=== PATIENT | male | born 1995 | race Hispanic/Latino ===

== ENCOUNTER 2017-11-04 09:14 | Emergency (ER) | payer MEDICAID ==
[2017-11-04 10:27] LABS: APPEARANCE,URINE Turbid (CLEAR); BILIRUBIN,URINE Small (NEGATIVE); COLOR,URINE Red (YELLOW); GLUCOSE, URINE (UA) Negative (NEGATIVE); KETONES,URINE Negative (NEGATIVE); LEUKOCYTE ESTERASE ,URINE Large (NEGATIVE); NITRATE,URINE Negative (NEGATIVE); OCCULT BLOOD,URINE Large (NEGATIVE); PH,URINE 7.5 (5.0-8.0); PROTEIN,URINE POS 2+ (NEGATIVE)
[2017-11-04 10:44] LABS: BACTERIA,URINE Few /HPF (None Seen); RBC,URINE TNTC /HPF (0-1); SQUAMOUS EPITHELIAL CELL,UR None Seen /HPF (0-2)
[2017-11-04] MEDS ORDERED: PHENAZOPYRIDINE HCL 200 MG TABLET ONE (10:47)
[2017-11-04] MEDS ORDERED: LIDOCAINE HCL-MPF 1% 2ML VIAL ONE (10:47)
[2017-11-04] MEDS ORDERED: CEFTRIAXONE SODIUM 1 GM ONE (10:47)
== END 2017-11-04 11:25 | disposition home or self-care (01) ==
LOC: EDH 09:14
DX: N30.90 Cystitis, unspecified without hematuria (principal); F84.0 Autistic disorder; Z90.49 Acquired absence of other specified parts of digestive tract
CPT/HCPCS: 81001; 87486; 87797; 96372; 99284; J0696; J3490

== ENCOUNTER 2018-11-24 20:59 | Inpatient (IN) | payer MEDICAID | END 2018-11-29 18:40 | disposition home or self-care (01) | LOC: EDH 20:59 → EDHIP 21:00 → 4CH 11-25 04:22 | DX: A41.9 Sepsis, unspecified organism (principal); N12 Tubulo-interstitial nephritis, not specified as acute or chronic; E87.6 Hypokalemia; F84.0 Autistic disorder ==

== ENCOUNTER → 2020-11-09 | Outpatient (CLI) | payer MEDICAID ==
[~2020-11-09] MED LIST: LEVO500T2 PO; RISP0.5T66 PO; TOPI25TA48 PO
[2020-11-09 09:08] LABS: APPEARANCE,URINE CLEAR (CLEAR); BASOPHILS % (AUTO) 0.6 % (0.0-5.0); BILIRUBIN,URINE NEGATIVE (NEGATIVE); COLOR,URINE YELLOW (YELLOW); EOSINOPHILS % (AUTO) 1.6 % (0.0-8.0); GLUCOSE, URINE (UA) NEGATIVE (NEGATIVE); KETONES,URINE NEGATIVE (NEGATIVE); LEUKOCYTE ESTERASE ,URINE NEGATIVE (NEGATIVE); LYMPHOCYTES % (AUTO) 20.5 % (21.0-51.0); MEAN CORPUSCULAR HEMOGLOBIN 28.7 pg (27.0-33.0); MEAN CORPUSCULAR HGB CONC 32.6 g/dL (32.0-36.0); MONOCYTES % (AUTO) 7.2 % (3.0-13.0); NEUTROPHILS % (AUTO) 69.4 % (40.0-77.0); NITRATE,URINE POSITIVE (NEGATIVE); OCCULT BLOOD,URINE NEGATIVE (NEGATIVE); PLATELET COUNT (AUTO) 233 K/uL (130-400); PROTEIN,URINE NEGATIVE (NEGATIVE); RED BLOOD CELL COUNT(AUTO) 5.68 MIL/uL (4.50-6.20); UROBILINOGEN,URINE 0.2 mg/dL (0.2-1.0); WHITE BLOOD COUNT (AUTO) 9.4 K/uL (4.8-10.8)
[2020-11-09 09:14] LABS: AMPHET/METH SCREEN,URINE NEGATIVE (NEGATIVE); BARBITURATE SCREEN, URINE NEGATIVE (NEGATIVE); BENZODIAZEPINES SCREEN,URINE NEGATIVE (NEGATIVE); CANNABINOID SCREEN,URINE NEGATIVE (NEGATIVE); COCAINE SCREEN,URINE NEGATIVE (NEGATIVE); OPIATE SCREEN,URINE NEGATIVE (NEGATIVE); PHENCYCLIDINE SCREEN,URINE NEGATIVE (NEGATIVE)
[2020-11-09 09:15] LABS: HEMOGLOBIN A1C 5.5 % (4.0-6.0)
[2020-11-09 09:23] LABS: BACTERIA,URINE Many /HPF (None Seen); RBC,URINE 0-1 /HPF (0-1); SQUAMOUS EPITHELIAL CELL,UR Rare /HPF (0-2)
[2020-11-09 09:50] LABS: ALANINE AMINOTRANSFERASE 62 U/L (12-78); ALBUMIN 3.9 g/dL (3.5-5.0); ASPARTATE AMINOTRANSFERASE 23 U/L (10-37); BILIRUBIN,TOTAL 0.5 mg/dL (0.2-1.0); CARBON DIOXIDE 30 mmol/L (21-32); CHLORIDE 105 mmol/L (101-111); CHOLESTEROL 177 mg/dL (<200); CREATININE 0.8 mg/dL (0.5-1.5); GLOMERULAR FILTR. RATE CALC 126 mL/min (>60); GLUCOSE,RANDOM 96 mg/dL (70-105); HDL CHOLESTEROL 28 mg/dL (29-71); LDL DIRECT 122 mg/dL (0-99); POTASSIUM 3.9 mmol/L (3.5-5.1); SODIUM SERUM 141 mmol/L (136-145); THYROID STIMULATING HORMONE 1.63 uIU/mL (0.36-3.74); TRIGLYCERIDES 271 mg/dL (30-200); UREA NITROGEN, BLOOD 10 mg/dL (7-18)
== END | disposition home or self-care (01) ==
LOC: LAB 08:04
PROVIDERS: ATTEND Psychiatry & Neurology Psychiatry
DX: Z79.899 Other long term (current) drug therapy (principal)
CPT/HCPCS: 36415; 80053; 80061; 80305; 81001; 82306; 82607; 82746; 83036; 84443; 85025; 87077; 87088; 87186